=== PATIENT | female | born 1985 | race Caucasian/White ===

== ENCOUNTER 2017-03-23 08:29 | Outpatient (CLI) | payer OTHER | END 2017-03-23 08:30 | disposition home or self-care (01) | LOC: DI 08:29 | DX: I34.0 Nonrheumatic mitral (valve) insufficiency (principal) | CPT/HCPCS: 93306 ==

== ENCOUNTER 2020-01-07 16:41 | Outpatient (CLI) | payer OTHER ==
--- NOTE | 2020-01-08 07:37 | Ultrasound Report ---
Reason: SUPER HIGH RISK Procedure Date: 01/07/2020 Accession Number: [id number] / [id number] Procedure: US - OB F/U or Repeat CPT Code: Final Report FULL RESULT: EXAM: FOLLOW-UP OBSTETRICAL ULTRASOUND EXAM DATE: 01/07/2020 06:20 PM. CLINICAL HISTORY: Super high risk . COMPARISON: Prior ultrasound studies performed at the [facility] are not available for comparison. TECHNIQUE: Real-time sonographic evaluation of the fetus performed by the assembly line machine operator. Additional transvaginal imaging to more accurately evaluate cervical length/placental position/etc. Multiple care support representative static images were saved for review. DATING: Established EGA 37 weeks 4 days with GREER 01/24/2020 based on the most recent reported ultrasound performed at outside institution. EGA 35 weeks 1 day with GREER 02/10/2020 based on reported clinical history as seen on previous ultrasound report. EGA 36 weeks 5 days with GREER 01/30/2020 based on the current ultrasound. GENERAL EVALUATION Monique . Cardiac activity: 116 bpm. movement: Visualized. Presentation: Cephalic. Placenta: Posterior position. Amniotic fluid: Normal. YAQUELIN 16.5 cm. MVP 4.9 cm. BIOMETRY Bi-Parietal Diameter (BPD): 9.1 cm, 37 weeks 0 days Head Circumference (HC): 33.5 cm, 38 weeks 2 days Abdominal Circumference (AC): 31.9 cm, 35 weeks 6 days Femur Length (FL): 6.9 cm, 35 weeks 3 days Estimated Weight: 2854 grams MATERNAL STRUCTURES Cervix is long and closed, 4.5 cm transabdominally. IMPRESSION: 1. Monique live intrauterine with gestational age 36 weeks 5 days based on the current ultrasound. 2. Acceptable interval growth compared to report dated 11/23/2019. RADIA
== END 2020-01-07 16:42 | disposition home or self-care (01) ==
LOC: DI 16:41
PROVIDERS: ATTEND Obstetrics & Gynecology
DX: O09.93 Supervision of high risk pregnancy, unspecified, third trimester (principal); Z3A.36 36 weeks gestation of pregnancy
CPT/HCPCS: 76816

== ENCOUNTER 2020-01-10 07:00 | Outpatient (CLI) | payer OTHER ==
[2020-01-10 22:41] LABS: TRICHOMONAS VAGINALIS DNA NEGATIVE (NEGATIVE)
== END 2020-01-10 23:59 | disposition home or self-care (01) ==
LOC: LAB.R 07:00
PROVIDERS: ATTEND Obstetrics & Gynecology
DX: Z36.89 Encounter for other specified antenatal screening (principal)
CPT/HCPCS: 87491; 87591; 87661; 87797

== ENCOUNTER 2020-01-14 19:47 | Outpatient (CLI) | payer OTHER ==
--- NOTE | 2020-01-14 22:38 | Ultrasound Report ---
Reason: SUPERVISION OF HIGH RISK Procedure Date: 01/14/2020 Accession Number: [id number] / [id number] Procedure: US - OB Limited CPT Code: Final Report FULL RESULT: EXAM: LIMITED OBSTETRICAL ULTRASOUND EXAM DATE: 01/14/2020 09:05 PM. CLINICAL HISTORY: SUPERVISION OF HIGH RISK , chronic hypertension, YAQUELIN check. COMPARISON: 01/07/2020. TECHNIQUE: Real-time sonographic evaluation of the fetus performed by the career agent. Multiple used equipment sales representative static images were saved for review. DATING: Established EGA 36 weeks 4 days with GREER 02/07/2020. GENERAL EVALUATION Monique . Cardiac activity: 126 bpm. movement: Visualized. Presentation: Cephalic. Placenta: Posterior position. Amniotic fluid: Normal. YAQUELIN 15.3 cm. MVP 5.9 cm. IMPRESSION: 1. Monique live intrauterine with gestational age 36 weeks 4 days based on established GREER. 2. YAQUELIN of 15.3. RADIA
== END 2020-01-14 19:48 | disposition home or self-care (01) ==
LOC: DI 19:47
PROVIDERS: ATTEND Advanced Practice Midwife
DX: O09.93 Supervision of high risk pregnancy, unspecified, third trimester (principal); Z3A.36 36 weeks gestation of pregnancy
CPT/HCPCS: 76815

== ENCOUNTER 2020-01-14 21:08 | Outpatient (CLI) | payer OTHER ==
[2020-01-14] MEDS ORDERED: LABETALOL 100 MG TABLET PO ONE (22:03)
--- NOTE | 2020-01-14 22:25 | HISTORY & PHYSICAL EXAMINATION ---
Admit History - Visit Reason Visit Reason: Other (35yo G1 at 36 4/7 wks by LMP c/w first trimester scan presents for scheduled YAQUELIN and NST secondary to AMA and mild gesational HTN. She denies bleeding, fluid leak, contractions and reports normal activity. Denies n/v/f/c and dysuria, headache and visual changes. Pt is on Labetalol 200BID and reports home BPs 130's/70-80's. Has not taken her evening dose.) - : 1 Care: positive: [facility] Risk/History: positive: Genital herpes Complications This : positive: Chronic HTN (Stable on baby as pirin and labetalol), Other (AMA) Smoking Status: Never smoker - Mother's Labs Mother's Blood Type: positive: O Mother's RH: positive: Positive Rubella Status: positive: Immune (HIV/RPR/HepB NR GC/chlam neg +HSV ASCUS PAP Varicella immune) Meds/Allgy - Home Medications Home Medications: Ambulatory Orders Medication Instructions Recorded Confirmed Cephalexin [Keflex] 500 mg PO TID #20 capsule 01/22/16 Fexofenadine HCl [Shilpi Allergy] 1 tab PO DAILY 01/22/16 01/22/16 Hydrocodone/Acetaminophen [[place] 1 each PO Q6H PRN #15 tablet 01/22/16 5-325 Tablet] Triamcinolone Acetonide [Nasacort] 2 puffs NS DAILY 01/22/16 01/22/16 Valacyclovir HCl [Valacyclovir] 1 tab PO DAILY 01/22/16 01/22/16 dexAMETHasone [Decadron] 4 mg PO DAILY #5 tablet 01/22/16 l-Norgest/E.estradiol-E.estrad 1 tab PO DAILY 01/22/16 01/22/16 [Loseasonique Tablet] - Allergies Allergies/Adverse Reactions: Allergies Allergy/AdvReac Type Severity Reaction Status Date / Time Sulfa (Sulfonamide Allergy Rash Verified 01/22/16 20:02 Antibiotics) Review of Systems - All Other Systems All Other Systems: reports: Reviewed and negative Physical - Abdominal Exam Vital Signs: Temp Pulse Resp BP Pulse Ox 98.4 F 77 18 142/82 H 100 01/14/20 21:28 01/14/20 21:28 01/14/20 21:28 01/14/20 21:46 01/14/20 21:28 Contraction Frequency (min/apart): None Uterine Resting Tone: positive: Soft - Monitoring Strip Review: positive: Category I - Presentation Presentation: positive: Vertex - Vaginal Exam Membranes: positive: Membranes intact (YAQUELIN done in radiology) - Speculum Exam Speculum Exam Performed: positive: No (Vertex by scan. YAQUELIN=11.3, greatest vertical pocket 3.43cm Active baby 06/07 on BPP) Assessment/Plan - Assessment/Plan Assessment: 35yo G1 at 36 4/7 weeks with normal testing. BP's slightly higher than her baseline. Given labetalol here. Will recheck her BP at home and call if it doesn't drop back down. Completely asymptomatic. F/U here for further BP management if indicated or as scheduled in a few days w primary OB provider.
[2020-01-14 22:37] VITALS: BP 145/93
== END 2020-01-14 22:40 | disposition home or self-care (01) ==
LOC: WFO 21:08 → FBP 21:12 → WFO 22:40
PROVIDERS: ATTEND Obstetrics & Gynecology
DX: O13.3 Gestational [pregnancy-induced] hypertension without significant proteinuria, third trimester (principal); O09.513 Supervision of elderly primigravida, third trimester; Z79.899 Other long term (current) drug therapy; O98.313 Other infections with a predominantly sexual mode of transmission complicating pregnancy, third trimester; A60.00 Herpesviral infection of urogenital system, unspecified; Z79.82 Long term (current) use of aspirin; Z3A.36 36 weeks gestation of pregnancy; O09.93 Supervision of high risk pregnancy, unspecified, third trimester
CPT/HCPCS: 59025; 76815; A9270

== ENCOUNTER 2020-01-21 16:51 | Inpatient (IN) | payer OTHER ==
[2020-01-21] MEDS ORDERED: LACTATED RINGERS 1,000 ML IV ONE ×2 (18:24→18:40)
[2020-01-21] MEDS ORDERED: miSOPROStoL 200 MCG TABLET PR SCH (19:54)
[2020-01-21] MEDS ORDERED: OXYTOCIN/SODIUM CHLORIDE 500 ML IV PRN (19:54)
[2020-01-21] MEDS ORDERED: miSOPROStoL 200 MCG TABLET PR PRN (19:54)
[2020-01-21] MEDS ORDERED: LABETALOL 100 MG TABLET PO ONE (20:44)
[2020-01-21] MEDS ORDERED: miSOPROStoL 100 MCG TABLET ONE (20:45)
[2020-01-21] MEDS: LABETALOL 100 MG TABLET PO SCH (21:00)
[2020-01-21 21:59] LABS: ALBUMIN 3.3 g/dL (3.2-5.5); ALBUMIN/GLOBULIN RATIO 0.9 (1.0-2.2); BILIRUBIN,TOTAL 0.4 mg/dL (0.2-1.0); CALCIUM 9.3 mg/dL (8.5-10.3); CREATININE 0.8 mg/dL (0.4-1.0); URIC ACID 7.6 mg/dL (2.6-7.2)
[2020-01-21 22:03] LABS: BASOPHILS # (AUTO) 0.1 10^3/uL (0.0-0.1); BASOPHILS % (AUTO) 0.4 %; EOSINOPHILS # (AUTO) 0.1 10^3/uL (0.0-0.7); EOSINOPHILS % (AUTO) 0.7 %; HGB - HEMOGLOBIN 13.1 g/dL (12.0-16.0); LYMPHOCYTES % (AUTO) 17.6 %; MEAN CORPUSCULAR HEMOGLOBIN 31.2 pg (27.0-31.0); MEAN CORPUSCULAR HGB CONC 33.6 g/dL (32.0-36.0); MEAN CORPUSCULAR VOLUME 92.9 fL (81.0-99.0); MEAN PLATELET VOLUME 10.4 fL (7.9-10.8); MONOCYTES # (AUTO) 0.4 10^3/uL (0.0-1.0); MONOCYTES % (AUTO) 3.6 %; NEUTROPHILS # (AUTO) 8.9 10^3/uL (1.5-6.6); NEUTROPHILS % (AUTO) 77.2 %; PLT - PLATELET COUNT 265 10^3/uL (130-450); RED CELL DISTRIBUTION WIDTH 13.8 % (12.0-15.0); WHITE BLOOD COUNT 11.6 x10^3/uL (4.8-10.8)
--- NOTE | 2020-01-21 22:08 | Ultrasound Report ---
Reason: Periods of bradycardia Procedure Date: 01/21/2020 Accession Number: [id number] / [id number] Procedure: US - OB Biophysical Profile CPT Code: Final Report FULL RESULT: EXAM: BIOPHYSICAL PROFILE EXAM DATE: 01/21/2020 07:31 PM. CLINICAL HISTORY: Periods of bradycardia. COMPARISON: None. TECHNIQUE: Real-time sonographic evaluation of the fetus performed by the project controls specialist. Multiple education courses sales representative static images were saved for review. DATING: Established EGA 37 weeks 4 days with GREER 02/07/2020. GENERAL EVALUATION Monique . Cardiac activity: 123 bpm. movement: Visualized. Presentation: Cephalic. Placenta: Posterior position. No evidence for previa or abruption. Amniotic fluid: Normal. YAQUELIN 14.4 cm. MVP 5.3 cm. BIOPHYSICAL PROFILE Breathing = 2 Movement = 2 Tone = 2 Amniotic Fluid = 2 Total 06/07 IMPRESSION: 1. Monique live intrauterine with gestational age 37 weeks 4 days based on established GREER. 2. Biophysical profile score 8 of 8. CAPO
[2020-01-21 22:22] LABS: CREATININE,URINE 17.1 mg/dL
[2020-01-21 22:28] LABS: TOTAL PROTEIN,URINE TIMED < 6 mg/dL
[2020-01-21] MEDS: valACYclovir 500 MG TABLET PO SCH (22:51)
[2020-01-21] MEDS: DOCUSATE SODIUM 250 MG CAPSULE PO SCH (22:51)
[2020-01-21] MEDS ORDERED: miSOPROStoL 100 MCG TABLET BC SCH (23:00)
--- NOTE | 2020-01-22 01:21 | HISTORY & PHYSICAL EXAMINATION ---
Admit History - Visit Reason Visit Reason: Other - : 2 Parity: 1 Care: positive: [facility] Risk/History: positive: Genital herpes, Other (chronic hypertension) Complications This : positive: Chronic HTN, Other Smoking Status: Former smoker - Mother's Labs Mother's Blood Type: positive: O Mother's RH: positive: Positive GBS: positive: Group B Step Negative Rubella Status: positive: Immune - Other Maternal History Other Maternal History: Patient is a 34-year-old G2, P0 at 37 weeks 4 days by LMP and 10-week ultrasound here for transfer of OB care. has been complicated by chronic hypertension on labetalol. Also taking ASA 81 mg p.o. daily. Has seen MFM in early . Hx of mild MVP; does not require cardiology surveillance. Had been seen in triage for testing. NST showed recurrent decels vs changes in baseline to the 100s in the setting of moderate variability and accels Continued on extended monitoring Patient had been given a fluid bolus and had a BPPP of 8/8 Blood pressures then peaked to a SBP of 165 followed with several in the high 150s No headache, vision change, RUQ pain Given the periods of bradycardia and the sudden increase in blood pressures after recent increase to TID dosing of labetalol, decision was made to proceed with IOL. 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 DATING by LMP and confirmed by 10w5d us on 07/17/19 O pos/Rub imm Genetic testing : Watkins wnl, neg CF carrier Glucola 110 FAS wnl; posterior, 91% EFW 3VC HSV: positive on valacyclovir Last pap 2016 TDaP 11/23/19 Influenza: confirm Meds/Allgy - Home Medications Home Medications: Ambulatory Orders Medication Instructions Recorded Confirmed Cephalexin [Keflex] 500 mg PO TID #20 capsule 01/22/16 Fexofenadine HCl [Shilpi Allergy] 1 tab PO DAILY 01/22/16 01/22/16 Hydrocodone/Acetaminophen [[place] 1 each PO Q6H PRN #15 tablet 01/22/16 5-325 Tablet] Triamcinolone Acetonide [Nasacort] 2 puffs NS DAILY 01/22/16 01/22/16 Valacyclovir HCl [Valacyclovir] 1 tab PO DAILY 01/22/16 01/22/16 dexAMETHasone [Decadron] 4 mg PO DAILY #5 tablet 01/22/16 l-Norgest/E.estradiol-E.estrad 1 tab PO DAILY 01/22/16 01/22/16 [Loseasonique Tablet] - Allergies Allergies/Adverse Reactions: Allergies Allergy/AdvReac Type Severity Reaction Status Date / Time Sulfa (Sulfonamide Allergy Rash Verified 01/22/16 20:02 Antibiotics) Review of Systems - Other Findings Other Findings: As per HPI otherwise remaining systems are negative. Physical - Abdominal Exam Vital Signs: Temp Pulse Resp BP Pulse Ox 98.4 F 73 16 144/87 H 99 01/21/20 17:27 01/21/20 19:48 01/21/20 19:48 01/21/20 19:48 01/21/20 18:26 Contraction Frequency (min/apart): quiet - Monitoring Heart Rate Baseline: 120 with periods in the 100s Strip Review: positive: Category II - Presentation Presentation: positive: Vertex - Vaginal Exam Membranes: positive: Membranes intact Dilation (in cm): cl - Other Notes Labor Progress Note/Additional Text: SVE deferred given lack of ctx and primigravida state Plan for Labor - Plan For Labor Plan for Labor: IOL: Proceed with cervical ripening -Start with 25 mcg misoprostol BC If tolerance is appropriate; ok to increase to 50 mcg with next dose -Reviewed possibility of Wood balloon -Pitocin when favorable Will remaininobservation status until active, ruptured, or pitocin is started HTN: Cont labetalol 200 mg po TID -IV labetalol vs hydralazine for severe ranage pressures -Magnesium in setting of persistent severe features -PIH labs pending HSV: no symptoms. Has been on valacyclovir since prior to 34 wga FWB: Vertex, GBS neg, well grwoth, Cat I with intermittent Cat II tracing -CEFM PAIN: Nitrous contraindicated in setting of COVID-19 ppx -Fentanyl 50 mcg IV until 7 cm and total cumulative dose not to exceed 200 mcg -Epidural per pat request Anticipate
[2020-01-22] MEDS: miSOPROStoL 100 MCG TABLET BC SCH ×4 (01:34→20:05)
[2020-01-22] MEDS: LABETALOL 100 MG TABLET PO SCH ×3 (05:00→21:02)
[2020-01-22] MEDS: SODIUM CHLORIDE FLUSH 0.9% 10 ML SYRINGE IVP PRN ×2 (08:00→12:00)
[2020-01-22] MEDS: valACYclovir 500 MG TABLET PO SCH ×2 (08:14→21:03)
--- NOTE | 2020-01-22 09:15 | Ultrasound Report ---
Reason: SUPERVISION OF HIGH RISK Procedure Date: 01/21/2020 Accession Number: [id number] / [id number] Procedure: US - OB Limited CPT Code: Final Report FULL RESULT: EXAM: LIMITED OBSTETRICAL ULTRASOUND EXAM DATE: 01/21/2020 04:57 PM. CLINICAL HISTORY: SUPERVISION OF HIGH RISK . Chronic hypertension COMPARISON: OB LIMITED 01/14/2020 8:33 PM. TECHNIQUE: Real-time sonographic evaluation of the fetus performed by the hot saw operator. Multiple plastic products sales representative static images were saved for review. DATING: Established EGA 37 weeks 4 days with GREER 02/07/2020. GENERAL EVALUATION Monique . Cardiac activity: 126 bpm. movement: Present. Presentation: Cephalic. Placenta: Posterior position. Amniotic fluid: Normal. YAQUELIN 14.2 cm. MVP 3.7 cm. ANATOMY Not assessed today. MATERNAL STRUCTURES Not assessed today. IMPRESSION: 1. Monique intrauterine with gestational age 37 weeks 4 days based on established GREER. 2. YAQUELIN 14.2 cm. MVP 3.7 cm. RADIA
--- NOTE | 2020-01-22 12:54 | PROVIDER PROGRESS NOTE ---
Labor Progress Note - Uterine Monitoring Uterine Monitoring Mode: positive: External toco Contraction Frequency (min/apart): 7 Contraction Intensity: positive: Mild Uterine Resting Tone: positive: Soft - Monitoring Monitor Mode: positive: External ultrasound Heart Rate Baseline: 125 Heart Rate Variability: positive: Moderate (6-25 bmp) Accelerations: positive: Present, 15x15 Decelerations: positive: None Strip Review: positive: Category I - Vaginal Exam Dilation (in cm): closed Effacement (%): 20 % Station: -3 Cervical Position: Posterior - Labor Progress Note Labor Progress Note/Additional Text: Strip reassuring. Minimal cx canges. continue with mesoprostil.
[2020-01-22] MEDS: DOCUSATE SODIUM 250 MG CAPSULE PO SCH (21:02)
[2020-01-23] MEDS: miSOPROStoL 100 MCG TABLET BC SCH ×2 (02:00→21:59)
--- NOTE | 2020-01-23 08:56 | PROVIDER PROGRESS NOTE ---
Labor Progress Note - Uterine Monitoring Uterine Monitoring Mode: positive: External toco Contraction Intensity: positive: Mild to moderate Uterine Resting Tone: positive: Soft - Monitoring Accelerations: positive: Present, 15x15 Decelerations: positive: None Strip Review: positive: Category I (Late entry 01/22/2020, 1730. Pt has had 4 doses of mesoprostal. Rx for 6 doses. Pt is not making muchj progress. VS normalized. Allow to sleep tonight. consider Cool cathiter in the AM.)
[2020-01-23] MEDS: LABETALOL 100 MG TABLET PO SCH ×3 (10:41→23:00)
--- NOTE | 2020-01-23 10:45 | PROVIDER PROGRESS NOTE ---
Labor Progress Note - Uterine Monitoring Uterine Monitoring Mode: positive: External toco Contraction Frequency (min/apart): 6 Contraction Intensity: positive: Mild Uterine Resting Tone: positive: Soft - Monitoring Heart Rate Baseline: 135 Heart Rate Variability: positive: Moderate (6-25 bmp) Accelerations: positive: Present, 15x15 Decelerations: positive: None Strip Review: positive: Category I - Vaginal Exam Dilation (in cm): 1 Effacement (%): 20 Station: -3 Cervical Position: Posterior (Soft) - Labor Progress Note Labor Progress Note/Additional Text: 60 Ml in Cook cath
--- NOTE | 2020-01-23 16:28 | PROVIDER PROGRESS NOTE ---
Labor Progress Note - Uterine Monitoring Contraction Frequency (min/apart): 6-7 Contraction Intensity: positive: Mild to moderate Uterine Resting Tone: positive: Soft - Monitoring Monitor Mode: positive: External ultrasound Heart Rate Baseline: 125 Heart Rate Variability: positive: Moderate (6-25 bmp) Accelerations: positive: Present, 15x15 Decelerations: positive: None Strip Review: positive: Category I - Vaginal Exam Dilation (in cm): 5 Effacement (%): 50% Station: -3 Cervical Position: Posterior - Labor Progress Note Labor Progress Note/Additional Text: Cx is betts 5. head is high adn vertex. start pitocin. Epidural PRN
[2020-01-23] MEDS ORDERED: OXYTOCIN/SODIUM CHLORIDE 500 ML IV SCH (17:00)
[2020-01-23] MEDS: LACTATED RINGERS 1,000 ML IV SCH (17:31)
--- NOTE | 2020-01-23 21:42 | PROVIDER PROGRESS NOTE ---
Labor Progress Note - Uterine Monitoring Contraction Frequency (min/apart): 4-6 Contraction Intensity: positive: Mild to moderate Uterine Resting Tone: positive: Soft - Monitoring Heart Rate Baseline: 125 Heart Rate Variability: positive: Moderate (6-25 bmp) Accelerations: positive: Present, 15x15 Decelerations: positive: None Strip Review: positive: Category I - Vaginal Exam Dilation (in cm): 5 Effacement (%): 30% Station: -3 Cervical Position: Posterior - Labor Progress Note Labor Progress Note/Additional Text: Pt has not made much progress. Stop Pit Misoprostal restart in the AM
[2020-01-23] MEDS: valACYclovir 500 MG TABLET PO SCH (21:56)
[2020-01-23] MEDS: DOCUSATE SODIUM 250 MG CAPSULE PO SCH (21:59)
[2020-01-24] MEDS: miSOPROStoL 100 MCG TABLET BC SCH (02:05)
[2020-01-24] MEDS: LABETALOL 100 MG TABLET PO SCH ×3 (06:01→21:29)
--- NOTE | 2020-01-24 07:43 | PROVIDER PROGRESS NOTE ---
Labor Progress Note - Uterine Monitoring Uterine Monitoring Mode: positive: External toco Contraction Frequency (min/apart): miniml Contraction Intensity: positive: Mild Uterine Resting Tone: positive: Soft - Monitoring Monitor Mode: positive: External ultrasound Heart Rate Baseline: 130 Heart Rate Variability: positive: Moderate (6-25 bmp) Accelerations: positive: Present, 15x15 Decelerations: positive: None Strip Review: positive: Category I - Vaginal Exam Dilation (in cm): 4.5 Effacement (%): 20% Station: -3 Cervical Position: Midposition (Misoprostal overnight Start pit after breakfast)
[2020-01-24] MEDS: valACYclovir 500 MG TABLET PO SCH ×2 (07:54→21:29)
[2020-01-24] MEDS: LORATADINE 10 MG TABLET PO SCH (07:54)
[2020-01-24] MEDS: DOCUSATE SODIUM 250 MG CAPSULE PO SCH ×2 (07:55→21:29)
[2020-01-24] MEDS ORDERED: OXYTOCIN/SODIUM CHLORIDE 500 ML IV SCH (08:00)
[2020-01-24] MEDS: LACTATED RINGERS 1,000 ML IV SCH ×2 (10:52→16:27)
--- NOTE | 2020-01-24 13:05 | PROVIDER PROGRESS NOTE ---
Labor Progress Note - Vaginal Exam Dilation (in cm): 4.5 Effacement (%): 20 Station: -3 Cervical Position: Posterior - Labor Progress Note Labor Progress Note/Additional Text: Pit increased form 6 to 8. head losing station. Batsheva yeager pt feels that she made more progress with misoprostal
--- NOTE | 2020-01-24 15:58 | PROVIDER PROGRESS NOTE ---
Labor Progress Note - Uterine Monitoring Contraction Frequency (min/apart): 2-4 Contraction Intensity: positive: Moderate to strong Uterine Resting Tone: positive: Soft - Monitoring Monitor Mode: positive: External ultrasound Heart Rate Baseline: 135 Heart Rate Variability: positive: Moderate (6-25 bmp) Accelerations: positive: Present, 15x15 Decelerations: positive: None Strip Review: positive: Category I - Vaginal Exam Dilation (in cm): 6 Effacement (%): 75% Station: -1 Cervical Position: Midposition - Labor Progress Note Labor Progress Note/Additional Text: SROM clear titrate pit Epidural PRN
[2020-01-24] MEDS ORDERED: LIDOCAINE-MPF 1% 30 ML VIAL ONE (16:25)
[2020-01-24] MEDS ORDERED: ROPIVACAINE 0.2% 200 MG/100 ML BAG EP ONE ×2 (16:25→23:02)
--- NOTE | 2020-01-24 17:04 | ANESTHESIA ---
Pre-Anesthesia VS, & Labs - Diagnosis active labor/ IUP - Procedure JOE Vital Signs: Temp Pulse Resp BP Pulse Ox 36.9 C 73 16 144/87 H 99 01/21/20 17:27 01/21/20 19:48 01/21/20 19:48 01/21/20 19:48 01/21/20 18:26 Height 5 ft 9 in Weight (kg) 66.075 kg - Is Patient ?: Yes - Lab Results Current Lab Results: Laboratory Tests 01/21/20 19:55: Sodium 136, Potassium 3.9, Chloride 105, Carbon Dioxide 19 L, Anion Gap 12.0, BUN 14, Creatinine 0.8, Estimated GFR (MDRD) 81 L, Glucose 121 H , Uric Acid 7.6 H, Calcium 9.3, Total Bilirubin 0.4, AST 24, ALT 19, Alkaline Phosphatase 147 H, Total Protein 7.0, Albumin 3.3, Globulin 3.7, Albumin/Globu obey Ratio 0.9 L 01/21/20 18:55: WBC 11.6 H, RBC 4.20, Hgb 13.1, Hct 39.0, MCV 92.9, MCH 31.2 H, MCHC 33.6, RDW 13.8, Plt Count 265, MPV 10.4, Neut # (Auto) 8.9 H, Lymph # (Auto) 2.0, [place] # (Auto) 0.4, Eos # (Auto) 0.1, Baso # (Auto) 0.1, Absolute Nucleated RBC 0.00, Nucleated RBC % 0.0 Fish Bones: 01/21/20 18:55 01/21/20 19:55 Home Medications and Allergies Active Medications Docusate Sodium (Colace 250mg Capsule) 250 mg PO BID [facility] Last Admin: 01/24/20 07:55 Dose: 250 mg Fluticasone Propionate (Flonase) 1 sprays PAYAL DAILY [facility] Lactated Ringer's (Lr) 1,000 mls @ 100 mls/hr IV .Q10H [facility] Last Admin: 01/24/20 16:27 Dose: 100 mls/hr Oxytocin/Sodium Chloride (Pitocin/Sodium Chloride) 500 mls @ 999 mls/hr IV PRN PRN; Protocol PRN Reason: POST- HEMORR PREVENTION Oxytocin/Sodium Chloride (Pitocin/Sodium Chloride) 500 mls @ 1 mls/hr IV TITR [facility]; Protocol Last Admin: 01/24/20 08:58 Dose: 2 milliunit/min, 2 mls/hr Labetalol HCl (Trandate) 200 mg PO TID [facility] Last Admin: 01/24/20 13:50 Dose: 200 mg Loratadine (Claritin) 10 mg PO DAILY [facility] Last Admin: 01/24/20 07:54 Dose: 10 mg Misoprostol (Cytotec) 50 mcg BC Q4H [facility] Last Admin: 01/24/20 02:05 Dose: 50 mcg Sodium Chloride (Normal Saline Flush 0.9%) 10 ml IVP PRN PRN PRN Reason: NEEDED PER PROVIDER ORDERS Last Admin: 01/22/20 12:00 Dose: 10 ml Valacyclovir HCl (Valtrex) 500 mg PO BID [facility] Last Admin: 01/24/20 07:54 Dose: 500 mg Fexofenadine HCl [Shilpi Allergy] 1 tab PO DAILY 01/22/16 Triamcinolone Acetonide [Nasacort] 2 puffs NS DAILY 01/22/16 Valacyclovir HCl [Valacyclovir] 1 tab PO DAILY 01/22/16 l-Norgest/E.estradiol-E.estrad [Loseasonique Tablet] 1 tab PO DAILY 01/22/16 Allergies/Adverse Reactions: Allergies Allergy/AdvReac Type Severity Reaction Status Date / Time Sulfa (Sulfonamide Allergy Rash Verified 01/22/16 20:02 Antibiotics) Anes History & Medical History - Anesthetic History Anesthesia Complications: reports: No previous complications Family history of Anesthesia Complications: Denies Family history of Malignant Hyperthermia: Denies - Medical History Cardiovascular: reports: None Pulmonary: reports: None Gastrointestinal: reports: None Urinary: reports: None Neuro: reports: None Musculoskeletal: reports: None Endocrine/Autoimmune: reports: None Blood Disorders: reports: None Skin: reports: None Smoking Status: Former smoker Psychosocial: reports: No issues indicated - Obstetrical History : 2 Parity: 1 Events: positive: Genital herpes, Other (chronic hypertension) Complications: positive: Chronic HTN, Other Exam General: Alert, Oriented x3, Cooperative, No acute distress Dental: WNL Mouth Openin Fingerbreadth Neck Mobility: Normal Mallampati classification: II Thyromental Distance: less than 4 cm Respiratory: Lungs clear, Normal breath sounds, No respiratory distress, No accessory muscle use Cardiovascular: Regular rate, Normal S1, Normal S2, No murmurs Abdomen: Normal bowel sounds, Soft, No tenderness, No hepatospenomegaly, No masses Extremities: No clubbing, No cyanosis, No edema, Normal pulses, No tenderness/swelling Neurological: Normal gait, Normal speech, Strength at 5/5 X4 ext, Normal tone, Sensation intact, Cranial nerves 3-12 NL, Reflexes 2+ Plan Anesthesia Type: Epidural Consent for Procedure(s) Verified and Reviewed: Yes Code Status: Attempt Resuscitation ASA classification: 2-Mild systemic disease Is this case an emergency?: No
[2020-01-24] MEDS ORDERED: DEXTROSE 5%-LACTATED RINGERS 1,000 ML IV SCH (18:00)
--- NOTE | 2020-01-25 01:29 | CONSULTATION NOTE ---
Consultation Report: RN reporting that patient was c/o some pain. Went in to see the patient, she has a sensory level of T10/T9. I encouraged her to push her PCEA button as needed for breakthrough pain. I aslo changed her intermittent bolus to 12ml q 45minutes. She appears comfortable and without distress.
[2020-01-25] MEDS ORDERED: miSOPROStoL 200 MCG TABLET ONE (02:19)
[2020-01-25] MEDS ORDERED: LIDOCAINE-MPF 1% 30 ML VIAL ONE (02:45)
--- NOTE | 2020-01-25 03:12 | DELIVERY NOTE ---
Delivery Note - Labor Labor: positive: Spontaneous, Induced by oxytocin. negative: Augmented by oxytocin - Delivery Method Delivery Method: positive: Spontaneous vaginal delivery - Cervical Ripening Method Cervical Ripening Method: positive: Balloon device, Misoprostil - Presentation Presentation: positive: Vertex, SANDRA - right occiput anterior - Nuchal Cord Nuchal Cord: positive: Present - Anesthetic Anesthetic Type: Anesthetic: positive: Lidocaine - 1% plain Volume: positive: Other (20) - Amniotic Fluid Description Amniotic Fluid Description: positive: Clear - Episiotomy Type Episiotomy Type: positive: None - Laceration Laceration: positive: 1st degree, 2nd degree, Labial, Perineal - Suture Suture Type: positive: Vicryl Suture Size: positive: 3-0 - Delivery Outcome Delivery Outcome: positive: Livebirth - : positive: Placed in direct skin contact with mother, Bulb syringe, Stimulated, [place] used [place] sex: positive: Male : APGARS 8/9 : weight 7 lb 3.5 oz - Cord Cord: positive: 3 vessels - Placenta Placenta: positive: Intact, Spontaneous - Estimated Blood Loss Estimated Blood Loss (in cc): 200 - Post Delivery Events Post Delivery Events: positive: No post delivery events - Delivery Comments (Free Text/Narrative) Delivery Comments (Free Text/Narrative): She was on labetalol. Patient is induced for worsening hypertension during her . She was brought in and received 6 doses of buccal misoprostol 50 mcg following this she had a Cook placed for cervical ripening this brought her up to 5 cm however the head remained high and the cervix remained long. She had Pitocin started on Tuesday and run throughout the day but made little progress. That evening she again received misoprostol and this morning her Pitocin was reinitiated. With time the head started to descend. She had an epidural placed for labral analgesia. She spontaneously ruptured at 1530 and came to complete at 0145 on the morning of the .She pushed excellent and following a 32-minute second stage delivered a healthy live male infant right occiput anterior. At time of delivery and nuchal cord was noted which was loose and the was delivered through the cord. The was placed on the maternal abdomen and cord was not clamped until pulsations had ceased.The had Apgars of 8 and 9 and was noted to be male. Placenta followed at 0228 was inspected noted to be intact. At time of delivery she suffered a second-degree perineal laceration and 2 first-degree labial lacerations. The perineal lacera tion was closed with 3-0 Vicryl and the right labial laceration was closed with 3-0 Vicryl subcuticular. At delivery the estimated blood loss was 200 cc. Both mother and infant tolerated delivery well. Sponge and needle counts were correct.
[2020-01-25] MEDS ORDERED: diphenhydrAMINE 25 MG CAPSULE PO PRN (03:20)
[2020-01-25] MEDS ORDERED: HYDROCORTISONE 1% CREAM 28 GM TUBE PR PRN (03:20)
[2020-01-25] MEDS ORDERED: oxyCODONE 5 MG TABLET PO PRN (03:20)
[2020-01-25] MEDS ORDERED: ONDANSETRON 4 MG/2 ML VIAL IVP PRN (03:20)
[2020-01-25] MEDS ORDERED: WITCH HAZEL/GLYCERIN 1 PAD TOP PRN (03:20)
[2020-01-25] MEDS: ACETAMINOPHEN 500 MG TABLET PO SCH ×3 (03:57→20:43)
[2020-01-25] MEDS ORDERED: LACTATED RINGERS 1,000 ML IV SCH (04:00)
[2020-01-25] MEDS: LABETALOL 100 MG TABLET PO SCH ×3 (06:03→20:44)
[2020-01-25 06:11] LABS: BASOPHILS % (AUTO) 0.3 %; EOSINOPHILS % (AUTO) 0.2 %; LYMPHOCYTES # (AUTO) 1.4 10^3/uL (1.5-3.5); MEAN CORPUSCULAR HEMOGLOBIN 30.4 pg (27.0-31.0); MEAN CORPUSCULAR HGB CONC 33.1 g/dL (32.0-36.0); MEAN CORPUSCULAR VOLUME 91.6 fL (81.0-99.0); MEAN PLATELET VOLUME 9.9 fL (7.9-10.8); MONOCYTES # (AUTO) 0.7 10^3/uL (0.0-1.0); MONOCYTES % (AUTO) 4.4 %; NEUTROPHILS # (AUTO) 13.4 10^3/uL (1.5-6.6); NEUTROPHILS % (AUTO) 85.4 %; PLT - PLATELET COUNT 200 10^3/uL (130-450); RED BLOOD COUNT 3.95 10^6/uL (4.20-5.40); RED CELL DISTRIBUTION WIDTH 13.8 % (12.0-15.0); WHITE BLOOD COUNT 15.7 x10^3/uL (4.8-10.8)
[2020-01-25 06:23] LABS: URIC ACID 8.3 mg/dL (2.6-7.2)
[2020-01-25] MEDS ORDERED: DOCUSATE SODIUM 100 MG CAPSULE PO SCH (09:00)
[2020-01-25] MEDS: DOCUSATE SODIUM 250 MG CAPSULE PO SCH ×2 (09:43→20:43)
[2020-01-25] MEDS: LORATADINE 10 MG TABLET PO SCH (09:43)
[2020-01-25] MEDS: valACYclovir 500 MG TABLET PO SCH ×2 (09:44→20:43)
[2020-01-25] MEDS: FLUTICASONE NASAL SPRAY NAS SCH (12:57)
[2020-01-26] MEDS: valACYclovir 500 MG TABLET PO SCH ×2 (08:06→20:08)
[2020-01-26] MEDS: ACETAMINOPHEN 500 MG TABLET PO SCH ×2 (08:06→16:09)
[2020-01-26] MEDS: LORATADINE 10 MG TABLET PO SCH (08:07)
[2020-01-26] MEDS: DOCUSATE SODIUM 250 MG CAPSULE PO SCH ×2 (08:07→20:08)
[2020-01-26] MEDS: LABETALOL 100 MG TABLET PO SCH ×2 (08:07→16:08)
[2020-01-26] MEDS: FLUTICASONE NASAL SPRAY NAS SCH ×2 (08:15→18:39)
[2020-01-26] MEDS: SIMETHICONE CHEW 80 MG TABLET PO SCH ×3 (08:49→18:38)
--- NOTE | 2020-01-26 10:53 | PROVIDER PROGRESS NOTE ---
Subjective - Prog Note Date Prog Note Date: 01/26/20 Prog Note Time: 10:51 - Subjective Subjective: Patient is up and ambulating, tolerating po, and voiding. Pain is well managed with pain medications. Breast-feeding is going well. Blood pressures remain within normal limits. Patient denies headache, vision change, right upper quadrant pain. She is without complaints. Baby will remain inpatient to monitor bilirubin levels per pediatric provider as relayed by patient. Objective - Vital Signs/Intake & Output Vital Signs: Vital Signs x48h Temp Pulse Resp BP Pulse Ox 01/26/20 08:11 98.2 F 79 21 132/81 H 98 Intake & Output: Intake & Output 01/23/20 01/24/20 01/25/20 01/26/20 23:59 23:59 23:59 23:59 Intake Total 3.65 2058.333 3000 Output Total 400 1900 Balance 3.65 1632.585 7594 - Objective General Appearance: positive: No acute distress Respiratory: positive: No respiratory distress Cardiovascular: positive: Other (RR) Peripheral Pulses: 1+ Dorsalis pedis (R), 1+ Dorsalis pedis (L) Abdomen: positive: Non-tender, Other (FF below umbi) Skin: positive: Color nml, Warm Extremities: positive: Non-tender, No pedal edema Neurologic/Psychiatric: positive: Oriented x3 - Lab Results Fish Bones: 01/25/20 05:58 01/21/20 19:55 Assessment/Plan - Problem List (1) Vaginal delivery Impression: PPD#1: Patient is doing well Will remain in patient for infant observation Anticipate DC home in am.
[2020-01-27] MEDS: ACETAMINOPHEN 500 MG TABLET PO SCH ×2 (08:01)
[2020-01-27] MEDS: valACYclovir 500 MG TABLET PO SCH (08:02)
[2020-01-27] MEDS: LABETALOL 100 MG TABLET PO SCH ×2 (08:02)
[2020-01-27] MEDS: DOCUSATE SODIUM 250 MG CAPSULE PO SCH (08:02)
[2020-01-27] MEDS: FLUTICASONE NASAL SPRAY NAS SCH (08:03)
[2020-01-27] MEDS: LORATADINE 10 MG TABLET PO SCH (08:03)
--- NOTE | 2020-01-27 12:58 | PROVIDER PROGRESS NOTE ---
Subjective - Prog Note Date Prog Note Date: 01/27/20 Prog Note Time: 11:37 - Subjective Pt reports feeling: Improved Subjective: Patient is up and ambulating, tolerating po, and voiding. Pain is well managed with pain medications. Taking tylenol only for pain. On labetaolol 200 TID. BPs have remained in high normal to low mild range. No complaints. Objective - Vital Signs/Intake & Output Vital Signs: Vital Signs x48h Temp Pulse Resp BP Pulse Ox 01/27/20 08:30 97.9 F 77 18 139/78 H 98 01/27/20 03:53 98.4 F 64 16 123/69 99 Intake & Output: Intake & Output 01/24/20 01/25/20 01/26/20 01/27/20 23:59 23:59 23:59 23:59 Intake Total 2058.333 3000 Output Total 400 1900 Balance 9810.102 3785 - Objective General Appearance: positive: No acute distress Respiratory: positive: No respiratory distress Cardiovascular: positive: Other (RR) - Lab Results Fish Bones: 01/25/20 05:58 01/21/20 19:55 Assessment/Plan - Problem List (1) Vaginal delivery Impression: Meeting goals for discharge DC to home with BP check within one week
[2020-01-27 13:04] VITALS: BP 130/76
--- NOTE | 2020-01-27 13:06 | Labor Flowsheet ---
Labor Flowsheet Datetime Report Generated by CPN: 01/27/2020 13:06 Datetime: 01/27/2020 12:21 VITAL SIGNS NBP Sys/Noni/Mean (mmHg): 130 : 76 : 89 Pulse: 72 Datetime: 01/27/2020 00:50 SpO2 (%): 99 Datetime: 01/25/2020 04:01 PAIN Pain Scale: 2 Pain Presence: Intermittent Pain Type: Cramping Pain Location: Abdomen Datetime: 01/25/2020 02:50 Respirations: 18 Temperature (C): 37.2 Temperature Route: Axillary Datetime: 01/25/2020 02:30 Stage of : Anesthesia Level Check: T10- Umbilicus Datetime: 01/25/2020 02:28 Comments: spont placenta Datetime: 01/25/2020 02:24 LaborFlag: Labor Datetime: 01/25/2020 02:15 UTERINE ACTIVITY Monitor Mode: External ASSESSMENT A Monitor Mode: External US Monitor Interventions for FHR: Ultrasound Adjusted FHR Baseline Rate : 90 Variability: Moderate 6-25 bpm Decelerations: Variable Datetime: 01/25/2020 02:10 Frequency (min): 3-4 Datetime: 01/25/2020 02:05 STAGE 2 Pushing: Coached on Pushing (Annotations: pushing initiated) Pushing Position: Pushing Lithotomy Pushing Progress: Descent with Pushing Datetime: 01/25/2020 02:00 Accelerations: 15X15 Datetime: 01/25/2020 01:57 I/O Interventions: Betts Discontinued Patient Care Comments: betts emptied of 300ml urine Datetime: 01/25/2020 01:45 Quality: Strong FHR Baseline Changes: No Baseline Change Category: Category II VAGINAL EXAM Dilatation (cm): 10.0 Station: 1 Exam by: A. Varne, RNC COMMUNICATION Communication: Call/Page Placed to Provider Provider Notified (Name): Dr. Salcedo Notification Reason: Status Update (Annotations: called to come to room for delivery) Datetime: 01/25/2020 01:31 Monitor Interventions for UA: [place] Adjusted Pattern: Normal: <= 5 Contractions in 10 Minutes Resting Tone (Palpate): Relaxed Datetime: 01/25/2020 01:21 Duration (sec): 60-80 Pain Assessment Comments: feet feeling more numb again and pain better Datetime: 01/25/2020 01:15 Pain Coping: Breathing Through Contractions ANESTHESIA Anesthesia Plans: Epidural Anesthesia Comments: TRANSPORTATION ASSISTANT in and bolus given and PCEA button given to pt Datetime: 01/25/2020 01:06 Provider Reviewed Strip: Yes Datetime: 01/25/2020 00:45 Contraction Comments: not picking up with pt on R side Datetime: 01/25/2020 00:26 Effacement (%): 90 Amniotic Fluid Amount: None Vaginal Bleeding: Scant Cervix, Consistency: Soft Cervix, Position: Anterior Headache: Denies Nausea/Vomiting: Denies RUQ Epigastric Pain: Denies Patient Position/Activity: Right Lateral Comfort Measures: Breathing/Relaxation Datetime: 01/24/2020 23:16 Amniotic Fluid Color: Clear Datetime: 01/24/2020 22:40 MEDICATIONS Pitocin (milliunits): Increased to @ 13 Datetime: 01/24/2020 22:39 Vaginal Exam Comments: feels slight rectal pressure with contractions Datetime: 01/24/2020 21:30 Medication Comments: Labetelol 200mg PO and Valtrex 500mg PO given as scheduled Datetime: 01/24/2020 19:55 Communication Comments: reported on VE, progress Datetime: 01/24/2020 19:19 MATERNAL ASSESSMENT Level of Consciousness: Alert Strip Reviewed by: A. Hilda, RNC Datetime: 01/24/2020 19:01 PATIENT CARE Oxygen Method: Room Air Datetime: 01/24/2020 16:49 Epidural Procedure Other: Pump Started Datetime: 01/24/2020 16:42 Epidural Procedure: Loading Dose Datetime: 01/24/2020 16:29 PROCEDURE TIME OUT Procedure Verify: Correct Patient Identity; Agreement on Procedure to be Done; Correct Patient Posi tion; Addressed Need to Administer Antibiotics or Fluids for Irrigation; Safety Precautions Based on Patient History or Medication Use Epidural Positioning: Sitting Datetime: 01/24/2020 15:30 Membrane Status: Ruptured Membranes Rupture Method: Spontaneous Datetime: 01/24/2020 07:30 Pitocin Checklist: At Least 1 Acceleration of 15 bpm x 15 Seconds in 30 Minutes or Adequate Variabi lity; No More than 1 Late Deceleration Occurred in Past 30 Minutes; No More than 2 Variable Decelerat ions > 60 Seconds in Duration and decreasing >60 bpm in 30 minutes; No More than 5 Uterine Contractio ns in 10 Minutes for any 20 Minute Interval; Uterus Palpates Soft between Contractions Datetime: 01/24/2020 02:07 Cervical Ripening Agents: Betts Balloon; Cytotec @ Datetime: 01/23/2020 20:19 Breath Sounds, Left: Clear and Equal Breath Sounds, Right: Clear and Equal Datetime: 01/23/2020 10:39 Procedures: Sterile Vag Exam Datetime: 01/23/2020 08:01 Plan of Care: Plan of Care Discussed Datetime: 01/22/2020 14:46 Hygiene: Shower Datetime: 01/22/2020 08:01 TEACHING Instructional Method: Verbal Unit Routine: Unit Personnel; Handwashing; Flu/Illness Precautions; Monitoring; Diet/Nutritio n Services; Medications Labor/Induction: Induction Pain Management: Pain Scale/Goals Related: Common Discomforts of ; Nutrition; Activity and Rest Datetime: 01/22/2020 02:02 Pain Goal: 5 Pain Relief Measures: Comfort Measures Datetime: 01/22/2020 01:35 Medications: Cervical Ripening Datetime: 01/22/2020 01:01 DTR's/Clonus: DTRs 2+; No Clonus
--- NOTE | 2020-01-27 13:49 | Discharge Plan ---
Discharge Plan Problem Reviewed?: Yes Disposition: 01 Home, Self Care Condition: Good Diet: Regular Activity Restrictions: Additional Comments (Nothing in the vagina for 6 weeks: No intercourse, tampons, douching Call for: -Fever greater than 100.5 - Pain that does not improve with pain medication -Heavy bleeding in which you are soaking a pad an hour for 2 hours in a row) Shower Restrictions: No (No baths or hot tubs for 4 weeks) Weight Bearing: Full Weight Additional Instructions or Follow Up instructions: Continue labetalol 200 mg by mouth 3 times daily. Continue to check blood pressures at home. Call clinic for blood pressures of 160 or greater systolic or 110 or greater diastolic. Call clinic for headaches, vision changes, right upper quadrant pain. No Smoking: If you smoke, Please STOP! Call for help. Follow-up with: MACARENA BABCOCK MD, PHD [Physician No Access] -
--- NOTE | 2020-01-27 13:52 | DISCHARGE SUMMARY ---
"Discharge Summary Admit Date: 01/21/20 Discharge Date: 01/27/20 Discharging Provider: Juanita Code Status: Attempt Resuscitation Condition at Discharge: Good Discharge Disposition: 01 Home, Self Care Discharge Facility Name: [facility] - DIAGNOSES Admission Diagnoses: IUP at 37w4d Chronic hypertension Severe range blood pressures, new obset, c/f BRADLY Discharge Diagnoses with Status of Each Condition: Same and delivery of term gestation - HPI History of Present Illness: Patient is a 34-year-old G2, P0 admitted at 37 weeks 4 days by LMP and 10-week ultrasound for BRADLY/CHTN. has been complicated by chronic hypertension on labetalol. Also taking ASA 81 mg p.o. daily. Has seen MFM in early . Hx of mild MVP; does not require cardiology surveillance. Had been seen in triage for testing. NST showed recurrent decels vs changes in baseline to the 100s in the setting of moderate variability and accels Continued on extended monitoring Patient had been given a fluid bolus and had a BPPP of 8/8 Blood pressures then peaked to a SBP of 165 followed with several in the high 150s No headache, vision change, RUQ pain Given the periods of bradycardia and the sudden increase in blood pressures after recent increase to TID dosing of labetalol, decision was made to proceed with IOL. 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 DATING by LMP and confirmed by 10w5d us on 07/17/19 O pos/Rub imm Genetic testing : [place] wnl, neg CF carrier Glucola 110 FAS wnl; posterior, 91% EFW 3VC HSV: positive on valacyclovir Last pap 2016 TDaP 11/23/19 Influenza: confirm - CONSULTS | PROCEDURES Procedures: vaginal delivery - HOSPITAL COURSE Hospital Course: Patient admitted with initial SVE of closed/long/high. Received 6 doses of buccal misoprostol 50 mcg for cervical ripening. She then had a Cook betts catheter placed for cervical ripening. After Betts bulb fell out, her cervical exam was 5/long.high. Started Pitocin on 01/23/2020, and run throughout the day but made little progress. That evening she again received misoprostol and on 01/24/20 am, Pitocin was reinitiated. With time the head started to descend. She had an epidural placed for analgesia. She spontaneously ruptured at 1530 and came to complete at 0145 on the morning of the .She pushed well for 32-minutes and delivered a healthy live male infant right occiput anterior. At time of delivery, nuchal cord was noted which was loose and the was delivered through the cord. The was placed on the maternal abdomen and cord was not clamped until pulsations had ceased.The had Apgars of 8 and 9. Placenta followed at 0228 was inspected noted to be intact. At time of delivery she suffered a second-degree perineal laceration and 2 first-degree labial lacerations. The perineal laceration was closed with 3-0 Vicryl and the right labial laceration was closed with 3-0 Vicryl subcuticular. At delivery the estimated blood loss was 200 cc. Both mother and tolerated delivery well. Sponge and needle counts were correct. Blood pressures remained in high normal, low mild range in the course. Baby was observed for bilirubin assessment. By PPD #2, both mother and baby were meeting goals for discharge and were discharged to home. Rh positive and Rubella immune. - ALLERGIES Allergies/Adverse Reactions: Allergies Allergy/AdvReac Type Severity Reaction Status Date / Time Sulfa (Sulfonamide Allergy Rash Verified 01/22/16 20:02 Antibiotics) - MEDICATIONS Home Medications: Ambulatory Orders Medication Instructions Recorded Confirmed Cephalexin [Keflex] 500 mg PO TID #20 capsule 01/22/16 Fexofenadine HCl [Shilpi Allergy] 1 tab PO DAILY 01/22/16 01/22/16 Hydrocodone/Acetaminophen [[place] 1 each PO Q6H PRN #15 tablet 01/22/16 5-325 Tablet] Triamcinolone Acetonide [Nasacort] 2 puffs NS DAILY 01/22/16 01/22/16 Valacyclovir HCl [Valacyclovir] 1 tab PO DAILY 01/22/16 01/22/16 dexAMETHasone [Decadron] 4 mg PO DAILY #5 tablet 01/22/16 l-Norgest/E.estradiol-E.estrad 1 tab PO DAILY 01/22/16 01/22/16 [Loseasonique Tablet] Home Medications Other | Comments: Tylenol 1000 mg po Q8H prn pain Labetalol 200 mg po TID - LABS Result Diagrams: 01/25/20 05:58 01/21/20 19:55 - FOLLOW UP Follow Up: Patient will track blood pressure at home and call within one week to report for follow-up in efforts to avoid COVID-19 exposure. Knows to call for SBP> =160 or DBP>=110 FU in 6 weeks for routine pp care - TIME SPENT Time Spent in Discharge (Minutes): 30"
== END 2020-01-27 13:05 | disposition home or self-care (01) | DRG 806 ==
LOC: DI 16:51 → FBP 17:16 → DI 19:53 → FBP 19:54 → OBSVTOIN 01-23 17:08
PROVIDERS: ADMIT Obstetrics & Gynecology; ATTEND Obstetrics & Gynecology
PROC: 0U7C7ZZ Dilation of Cervix, Via Natural or Artificial Opening (ICD-10-PCS; 2020-01-23)
PROC: 3E033VJ Introduction of Other Hormone into Peripheral Vein, Percutaneous Approach (ICD-10-PCS; 2020-01-23)
PROC: 10E0XZZ Delivery of Products of Conception, External Approach (ICD-10-PCS; principal; 2020-01-25)
PROC: 0KQM0ZZ Repair Perineum Muscle, Open Approach (ICD-10-PCS; 2020-01-25)
DX: O10.92 Unspecified pre-existing hypertension complicating childbirth (principal); O98.32 Other infections with a predominantly sexual mode of transmission complicating childbirth; Z37.0 Single live birth; A60.00 Herpesviral infection of urogenital system, unspecified; O70.1 Second degree perineal laceration during delivery; O70.0 First degree perineal laceration during delivery; O69.81X0 Labor and delivery complicated by cord around neck, without compression, not applicable or unspecified; O10.93 Unspecified pre-existing hypertension complicating the puerperium; Z3A.37 37 weeks gestation of pregnancy; Z79.82 Long term (current) use of aspirin; Z79.899 Other long term (current) drug therapy; Z86.79 Personal history of other diseases of the circulatory system; Z87.891 Personal history of nicotine dependence
CPT/HCPCS: 36415; 59025; 76815; 76819; 80053; 82570; 84156; 84450; 84550; 85025; 99213; A9270; G0378; J7120; 99214

== ENCOUNTER 2022-10-20 07:56 | Outpatient (CLI) | payer OTHER | END 2022-10-20 07:57 | disposition home or self-care (01) | LOC: DI 07:56 | PROVIDERS: ATTEND Student in an Organized Health Care Education/Training Program | DX: R00.2 Palpitations (principal); I10 Essential (primary) hypertension; I34.1 Nonrheumatic mitral (valve) prolapse | CPT/HCPCS: 93306 ==

== ENCOUNTER 2022-12-21 09:22 | Outpatient (CLI) | payer OTHER ==
[2022-12-21 10:05] VITALS: BP 142/80
--- NOTE | 2022-12-21 10:05 | SLEEP CARE CONSULTATION ---
Information from patient questionnaire entered by Bulmaro Mortensen. I have reviewed and concur with the information entered by Bulmaro Mortensen. This document represents the service I personally performed and the decisions made by me, Valerie Dos Santos ARNP. History of Present Illness Service Date and Time: 12/21/2022921 Reason for Visit: New patient Chief Complaint: reports: Insomnia, Unrefreshed sleep, Snoring, Fatigue, Frequent awakenings at night Date of Onset: 2002 Usual bedtime: 930-10PM Time it takes to fall asleep: 30+MIN Snores at night: Yes Observed to quit breathing while asleep: No Sleeps alone due to snoring: No Number of times waking at night: 3-4 Reasons for waking at night: reports: Snoring, Pain, Bathroom, Other (NOISE). denies: Choking, Gasping for air Toss, Turn, or Twitch while sleeping: Yes Recalls having dreams: No Usually gets out of bed at: 6-630AM Feels refreshed in the morning: No Morning headache: Yes (3-4 times a week; usually resolves with coffee) Sleepy or fatigued during the day: Yes Ever fallen asleep while driving: No Takes day naps: No Dreams during day naps: No Prior sleep studies: No Additional HPI information: I had the pleasure of seeing EVA ESCALANTE today regarding the possibility of her having a sleep disorder. Her current complaints are fatigue, frequent night awakenings, snoring and unrefreshed sleep. She has been having less energy during the day and was sent here by her PCP. She states she wakes up at least 4 times a night for no apparent reasons. Other times she has been waking up with pain in her abdomen or because her child comes into her bed. 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 Patient is and lives in [place]. Have you smoked in the past 12 months: No Years of smokin Quit date: 2014 Alcohol use: Yes Alcohol amount and frequency: 1-2 4-5X MONTH Caffeine use: Yes Caffeine amount and frequency: 2CUPS DAILY Family History Family history of sleep disordered breathing: Yes Family Hx Sleep Apnea: Mother: Snoring, Father: Snoring, Sleep apnea - Treated, Sibling: Snoring Allergies and Home Medications Known drug allergies: Yes (SULFA) Drug allergies reviewed: Yes Home medication list reviewed: Yes Allergy and home medication list: Medications: Mobic Diltiazem Valtrex Claritin Flonase vitamins Tizanadine Review of Systems Cardiovascular: reports: high blood pressure, palpitations, chest pain Gastrointestinal: reports: heartburn, abdominal pain Urinary: reports: frequency Neurological: reports: headaches, gait or balance problems Psychiatric: denies: anxiety, depression Ear/Nose/Throat: reports: nasal congestion, sinus problems, nose bleeds, dry mouth/throat, hoarseness, wisdom teeth removed. denies: tonsillectomy Endocrine: reports: sluggishness, too hot or cold, excessive thirst, increased urination Musculoskeletal: reports: joint pain, neck pain, back pain, muscle pain or cramping Immunologic: reports: sneezing, itching Physical Exam Vital signs obtained and entered by: BULMARO Patel MA Blood Pressure: 142/80 (LEFT ARM) Cuff size: regular Heart Rate: 78 O2 Saturation: 97 Height: 5 ft 9 in Weight: 235 lb 12.8 oz Body Mass Index: 34.8 BMI Classification: Obese Neck circumference: 14.75 Mouth and throat: narrow oropharynx Soft palate: normal Hard palate: normal Uvula: normal Uvula visualization: 25% Mallampati Class III Tongue: enlarged in size with teeth beltrán on lateral edges Tonsils: small Neck: normal w/o lymphadenopathy or thyromegaly Heart: regular rate and rhythm Lungs: clear bilaterally Impression and Plan 1. Suspected Obstructive Sleep Apnea-Hypopnea Syndrome, as suggested by a history of loud and irregular snoring, morning headache, frequent awakening during the night, unrefreshed sleep and cognitive impairment. Narrow oropharynx and obesity are common predisposing factors for obstructive sleep apnea-hypopnea syndrome. I recommend proceeding to polysomnography to confirm the diagnosis and to assess severity. If the patient has significant sleep disordered breathing, a manual CPAP titration study will also be performed to find the optimal treatment pressure. I informed the patient of what the sleep studies involve and after some discussion, obtained agreement to proceed. The pathophysiology of obstructive sleep apnea-hypopnea syndrome was discussed with the patient and health risks of cardiovascular and cerebrovascular disease if not treated. Risks of drowsy driving discussed in detail and patient advised to avoid long distance driving and to stick puller at the first sign of drowsiness. Patient agreed to plan. * Schedule polysomnography * Avoid long distance driving or driving when feeling sleepy. * Avoid alcohol, sedative and muscle relaxant around bedtime. * Attempt to lose weight. * Review instructions provided by trained office staff on how to prepare for the sleep study. * Return for follow-up after sleep study completed. Counseling Topics: Weight loss health impact Visit Type: In Office Time Spent with Patient (minutes): 31 Provider Statement: I spent 100% of the Face to Face Visit with the patient with greater than 50% spent counseling the patient and coordination of care.
== END 2022-12-21 09:23 | disposition home or self-care (01) ==
LOC: SC 09:22
PROVIDERS: ATTEND Nurse Practitioner Family
DX: R06.83 Snoring (principal); G47.8 Other sleep disorders; R51.9 Headache, unspecified; R53.83 Other fatigue; I10 Essential (primary) hypertension; E66.9 Obesity, unspecified; Z68.34 Body mass index [BMI] 34.0-34.9, adult; Z87.891 Personal history of nicotine dependence
CPT/HCPCS: 99203; 99212

== ENCOUNTER 2023-01-09 19:24 | Outpatient (CLI) | payer OTHER | END 2023-01-09 19:25 | disposition home or self-care (01) | LOC: SC 19:24 | PROVIDERS: ATTEND Nurse Practitioner Family | DX: R06.83 Snoring (principal); G47.8 Other sleep disorders; R51.9 Headache, unspecified; R53.83 Other fatigue; I10 Essential (primary) hypertension; E66.9 Obesity, unspecified; Z68.34 Body mass index [BMI] 34.0-34.9, adult | CPT/HCPCS: 95810 ==

== ENCOUNTER 2023-01-13 12:43 | Outpatient (CLI) | payer OTHER ==
--- NOTE | 2023-01-13 13:22 | SLEEP CARE CONSULTATION ---
Information from patient questionnaire entered by Vita Mortensen. I have reviewed and concur with the information entered by Vita Mortensen. This document represents the service I personally performed and the decisions made by , Valerie Dos Santos ARNP. History of Present Illness Service Date and Time: 01/13/2023 1243 Initial [place] Sleepiness Scale score: 3 (12/14/22) Current [place] Sleepiness Scale score: 5 (01/13/23) Additional HPI information: EVA ESCALANTE returns for follow up and results of the recently performed polysomnography. The patient was informed of the following findings: No significant sleep disordered breathing with an average AHI of 3.4 and jayme oxygen saturation of 84%. Supine AHI 12.7. I explained the pathophysiology behind obstructive sleep apnea. Patient does not have sleep apnea and was advised how weight gain could increase the risk of developing sleep apnea in the future. I strongly encouraged the patient to lose weight. Patient does not have significant sleep disordered breathing but has elevated AHI in supine position so advised positional therapy. Methods to achieve positional management therapy were discussed; such as, positioning with pillows, wearing a T-shirt with tennis balls sewn into the back or commercially available products. Patient has moderate snoring. Snoring can be reduced by weight loss. Weight loss is best achieved with diet consult. Patient instructed to contact PCP for referral. Snoring can also be treated with an oral appliance from a dentist. Advised to check insurance coverage. In addition, an ENT evaluation can be do to see if other treatment is indicated. Patient counseled not drink alcohol less than 4 hours before bedtime as it can increase snoring and apnea. Patient was cautioned about risks of drowsy driving until sleepiness symptoms resolve. Nivia ent denies drowsy driving. Sleep Study - Results Type of Sleep Study: Polysomnography (COMPLETED 01/09/23) Prior sleep studies: No Polysomnography/Home Sleep Study results: IMPRESSION: The quality of the study is good. The patient had reduced sleep efficiency due to sleep onset insomnia and a prolonged awakening in the second half of the night. The sleep architecture was abnormal for sleep fragmentation and reduced amount of time spent in slow wave sleep (N3). Respiratory monitoring showed no significant sleep disordered breathing (AHI = 3.4) or hypoxia (jayme oxygen saturation of 84% but only 0.8% to the total sleep time was spent with oxygen saturation below 90%). The respiratory events occurred almost exclusively during supine REM sleep (supine AHI = 12.7; non-supine = 0.73). Snore was light to moderate in intensity. There was no significant periodic leg movement of sleep. Cardiac rhythm was normal sinus rhythm without significant arrhythmia. No abnormal behavior (parasomnia) observed during the night. Allergies and Home Medications Known drug allergies: Yes (sulfa) Drug allergies reviewed: Yes Home medication list reviewed: Yes (no changes) Allergy and home medication list: Allergies Sulfa (Sulfonamide Antibiotics) Allergy (Verified 01/12/23 14:49) Rash Review of Systems Review of systems same as previous: No (vaginal prolapse & prob uterine prolapse w/ poss. bladder drop) Physical Exam Vital signs obtained and entered by: VITA Patel MA Blood Pressure: 138/94 (LEFT ARM) Cuff size: regular Heart Rate: 63 O2 Saturation: 98 Height: 5 ft 9 in Weight: 236 lb 6.4 oz Body Mass Index: 34.9 BMI Classification: Obese Impression and Plan Snoring but no significant sleep disordered breathing. Patient has an elevated supine AHI and should avoid sleeping on her back. Positional management therapy could be effective to control these respiratory events. Methods discussed such as positioning with pillows, using a T-shirt with tennis balls in the back or commercial products that have a pillow format on back to prevent supine sleep. I reviewed the impact of weight changes on sleep apnea and strongly recommended losing weight. Patient advised that often weight loss will reduce snoring as well as apnea risk. An oral appliance can also be used for snoring. This would require a dental consultation. Patient cautioned not to use other online appliances as can cause bite issues. A list of accredited dentists in [facility] and one local dentist who makes oral appliances given. Patient is advised to check if insurance will cover. An ENT consult can also be helpful to determine if any other treatment is an option. * Attempt to lose weight * Avoid alcohol consumption near bedtime * The patient is cautioned about driving until sleepiness is completely resolved. * Return as needed for follow up. Counseling Topics: Sleeping position, Weight loss health impact Visit Type: In Office Time Spent with Patient (minutes): 20 Provider Statement: I spent 100% of the Face to Face Visit with the patient with greater than 50% spent counseling the patient and coordination of care.
[2023-01-13 13:33] VITALS: BP 138/94
== END 2023-01-13 12:44 | disposition home or self-care (01) ==
LOC: SC 12:43
PROVIDERS: ATTEND Nurse Practitioner Family
DX: R06.83 Snoring (principal); E66.9 Obesity, unspecified; Z68.34 Body mass index [BMI] 34.0-34.9, adult
CPT/HCPCS: 99212; 99213

== ENCOUNTER 2023-09-07 08:00 | Outpatient (CLI) | payer OTHER | END 2023-09-07 23:59 | disposition home or self-care (01) | LOC: LAB.N 08:00 | PROVIDERS: ATTEND Physician Assistant Medical | DX: J02.9 Acute pharyngitis, unspecified (principal) | CPT/HCPCS: 87070 ==

== ENCOUNTER 2023-10-03 10:30 | Outpatient (CLI) | payer OTHER ==
--- NOTE | 2023-10-03 12:02 | XRAY Report ---
PROCEDURE: Finger(s) RT INDICATIONS: RIGHT MIDDLE FINGER DISTAL TIP CRUSH INJURY TECHNIQUE: AP hand, 2 views of the third finger(s) acquired. COMPARISON: None. FINDINGS: Bones: No fractures or dislocations. No suspicious bony lesions. Soft tissues: No suspicious soft tissue calcifications or masses. IMPRESSION: No acute bony abnormality. Reviewed by: Des Atkins MD on 10/03/2023 12:00 PM [facility] Approved by: Des Atkins MD on 10/03/2023 12:00 PM [facility] Station ID: [id number]
== END 2023-10-03 10:45 | disposition home or self-care (01) ==
LOC: DI.N 10:30
PROVIDERS: ATTEND Physician Assistant Medical
DX: L60.8 Other nail disorders (principal)

== ENCOUNTER 2023-10-28 08:52 | Outpatient (CLI) | payer OTHER ==
[2023-10-28 11:55] LABS: BASOPHILS # (AUTO) 0.1 10^3/uL (0.0-0.1); BASOPHILS % (AUTO) 0.6 %; EOSINOPHILS # (AUTO) 0.1 10^3/uL (0.0-0.7); EOSINOPHILS % (AUTO) 1.4 %; HCT - HEMATOCRIT 43.8 % (37.0-47.0); LYMPHOCYTES % (AUTO) 24.6 %; MEAN CORPUSCULAR HGB CONC 34.2 g/dL (32.0-36.0); MEAN CORPUSCULAR VOLUME 93.4 fL (81.0-99.0); MEAN PLATELET VOLUME 9.5 fL (7.9-10.8); MONOCYTES # (AUTO) 0.5 10^3/uL (0.0-1.0); MONOCYTES % (AUTO) 6.5 %; NEUTROPHILS # (AUTO) 5.4 10^3/uL (1.5-6.6); NEUTROPHILS % (AUTO) 66.5 %; PLT - PLATELET COUNT 287 10^3/uL (130-450); RED BLOOD COUNT 4.69 10^6/uL (4.20-5.40); WHITE BLOOD COUNT 8.1 x10^3/uL (4.8-10.8)
[2023-10-28 12:17] LABS: ALBUMIN 4.6 g/dL (3.2-5.5); ALBUMIN/GLOBULIN RATIO 1.4 (1.0-2.2); ALKALINE PHOSPHATASE 72 IU/L (42-121); ALT ALANINE AMINOTRANSFERASE 30 IU/L (10-60); AST ASPARTATE AMINOTRANSFERASE 22 IU/L (10-42); BILIRUBIN,TOTAL 0.8 mg/dL (0.2-1.0); BUN - BLOOD UREA NITROGEN 12 mg/dL (6-20); CALCIUM 9.6 mg/dL (8.5-10.3); CARBON DIOXIDE - CO2 27 mmol/L (21-32); CHLORIDE 101 mmol/L (101-111); CHOL/HDL RATIO 4.3 (<4.4); CHOLESTEROL 251 mg/dL; CREATININE 0.7 mg/dL (0.6-1.3); GFR - MDRD 93 (>89); GLUCOSE 92 mg/dL (74-104); HDL CHOLESTEROL 59 mg/dL; LDL CHOLESTEROL,CALCULATED 162 mg/dL; LDL/HDL RATIO 2.7 (<4.4); POTASSIUM 4.1 mmol/L (3.5-4.5); SODIUM 134 mmol/L (135-145); TOTAL PROTEIN 7.9 g/dL (6.4-8.9); TRIGLYCERIDES 149 mg/dL (48-352); VLDL CHOLESTEROL 30 mg/dL
[2023-10-28 12:19] LABS: ESTIMATED AVERAGE GLUCOSE 91 mg/dL (70-100); HEMOGLOBIN A1c% 4.8 % (4.27-6.07)
[2023-10-28 12:21] LABS: THYROID STIMULATING HORMONE 1.33 uIU/mL (0.34-5.60)
== END 2023-10-28 08:53 | disposition home or self-care (01) ==
LOC: LAB.N 08:52
PROVIDERS: ATTEND Nurse Practitioner Family
DX: Z00.00 Encounter for general adult medical examination without abnormal findings (principal); I10 Essential (primary) hypertension; E66.9 Obesity, unspecified
CPT/HCPCS: 36415; 80053; 80061; 83036; 83721; 84443; 85025

== ENCOUNTER 2023-12-13 11:23 | Outpatient (CLI) | payer OTHER ==
--- NOTE | 2023-12-13 12:29 | SLEEP CARE CONSULTATION ---
Information from patient questionnaire entered by Vita Mortensen. I have reviewed and concur with the information entered by Vita Mortensen. This document represents the service I personally performed and the decisions made by , Valerie Dos Santos ARNP. History of Present Illness Service Date and Time: 12/13/2023 1123 AHI: 3.4 (supine AHI 12.7) Reason for follow up: other (11 MONTH F/U FOR ORAL APPLIANCE) Prior sleep studies: No Type of Sleep Study: Polysomnography (COMPLETED 01/09/23) HPI additional information: EVA ESCALANTE returns today for 11 month follow-up. She comes in for pre scription for oral appliance. Sleep Study - Results Type of Sleep Study: Polysomnography (COMPLETED 01/09/23) Prior sleep studies: No Subjective Initial Sh[place] Sleepiness Scale score: 3 (12/14/22) Current Shonto Sleepiness Scale score: 9 Allergies and Home Medications Known drug allergies: Yes (sulfa) Drug allergies reviewed: Yes Home medication list reviewed: Yes (meds as listed) Allergy and home medication list: Allergies Sulfa (Sulfonamide Antibiotics) Allergy (Verified 12/12/23 09:08) Rash Medications: Losartan 50 mg Diltiazem Daily Vitamins Valtrex 500 mg Loratidine 10 mg Flonase Review of Systems Review of systems same as previous: No (total hysterectomy w/oopherectomy; sacrocolcopexy; bladder sling) Physical Exam Vital signs obtained and entered by: VALERIE PHILLIP Blood Pressure: 132/89 Cuff size: long (left) Heart Rate: 70 O2 Saturation: 98 Height: 5 ft 9 in Weight: 240 lb 3.2 oz Body Mass Index: 35.4 BMI Classification: Obese Impression and Plan 1. Snoring with elevated supine AHI at 12.7 as seen in last sleep study dated 01-09-2023. She has a history of hypertension and cardiac disease (mitral valve prolapse). She had surgery for hysterectomy and bladder sling and was told that she had a lot of apneas. She had already completed her sleep study 12/2022 which showed no significant sleep disordered breathing however she did have an elevated AHI when sleeping supine. Post-surgery she had to sleep on her back a lot and this caused her oxygen to drop when she would fall asleep. They encouraged her to follow-up to get an oral device for sleep apnea. I reviewed w ith her her sleep study results and says she just needs to avoid sleeping supine which she normally did prior to surgery. She did speak to her dentist about an oral appliance since I had talked to her about an oral appliance at our last visit. She could use an oral appliance for snoring. She said her dentist needs a prescription to get her an oral appliance which is what brought her here today. I told her she needs to check with her insurance as they may not cover an oral appliance for snoring. She does have positional mild obstructions when sleeping supine and I think it would be helpful to use an oral appliance. I will write the prescription and she will follow-up with her dentist. 2. Obesity, unspecified. Currently patients BMI is 35.4. Obesity increases the risk of apnea, CPAP pressure requirements and overall health risks especially cardiovascular and diabetes. Thus patient is advised to lose weight. * Oral appliance for snoring * Attempt to lose weight * Return for follow up as needed Counseling Topics: Sleeping position, Weight loss health impact Prescriptions: Other (Oral appliance for snoring) Follow up with Sleep Care in: as needed Visit Type: In Office Time Spent with Patient (minutes): 23 Provider Statement: I spent 100% of the Face to Face Visit with the patient with greater than 50% spent counseling the patient and coordination of care.
[2023-12-13 12:35] VITALS: BP 132/89; O2SAT 98
== END 2023-12-13 11:24 | disposition home or self-care (01) ==
LOC: SC 11:23
PROVIDERS: ATTEND Nurse Practitioner Family
DX: R06.83 Snoring (principal); I10 Essential (primary) hypertension; I34.1 Nonrheumatic mitral (valve) prolapse; E66.9 Obesity, unspecified; Z68.35 Body mass index [BMI] 35.0-35.9, adult
CPT/HCPCS: 99212

== ENCOUNTER 2024-01-14 22:51 | Outpatient (CLI) | payer OTHER | END 2024-01-14 23:59 | disposition critical access hospital (66) | LOC: EMS 22:51 | DX: R11.0 Nausea (principal); F10.90 Alcohol use, unspecified, uncomplicated | CPT/HCPCS: A0425; A0427 ==

== ENCOUNTER 2024-01-14 23:09 | Emergency (ER) | payer OTHER ==
--- NOTE | 2024-01-14 23:37 | ED Physician Documentation ---
History of Present Illness - Stated complaint Stated Complaint: ETOH - Chief complaint Chief Complaint: Abd Pain - History obtained from History obtained from: Patient, Family (), EMS - History of Present Illness Timing: Today - Additonal information Additional information: 39-year-old Vale Cardenas went to the [employer] dinner with her this evening celebrating her 39th birthday and drank heavily, ate more than usual and she began to have issue with vomiting and altered level of consciousness. The indicates that she usually drinks maybe a glass of wine with dinner and does not usually drink hard alcohol or drink excessively. He indicates that she drank way more than she normally does both wine and hard alcohol. Review of Systems Constitutional: reports: Sweats. denies: Fever, Chills Eyes: denies: Decreased vision Ears: denies: Ear pain Nose: reports: Congestion. denies: Rhinorrhea / runny nose Throat: denies: Sore throat Cardiac: denies: Chest pain / pressure, Palpitations Respiratory: reports: Cough (mild). denies: Dyspnea GI: reports: Nausea, Vomiting. denies: Abdominal Pain : denies: Dysuria, Frequency Skin: denies: Rash Musculoskeletal: denies: Neck pain, Back pain, Extremity pain Neurologic: reports: Near syncope. denies: Generalized weakness, Focal weakness, Numbness, Difficulty speaking PD PAST MEDICAL HISTORY - Past Medical History Cardiovascular: None Respiratory: None Neuro: None Endocrine/Autoimmune: None GI: None : None Musculoskeletal: None Derm: None - Past Surgical History Past Surgical History: Yes - Present Medications Home Medications: Ambulatory Orders Medication Instructions Recorded Confirmed Fluticasone [Flonase] See Rx Instructions .ROUTE .COMPLEX 12/21/22 01/13/23 Ibuprofen [Motrin] See Rx Instructions .ROUTE .COMPLEX 12/21/22 01/13/23 Loratadine [Claritin] See Rx Instructions .ROUTE .COMPLEX 12/21/22 01/13/23 Meloxicam [Mobic] See Rx Instructions .ROUTE .COMPLEX 12/21/22 01/13/23 Pnv No.95/Ferrous Fum/Folic AC See Rx Instructions .ROUTE .COMPLEX 12/21/22 01/13/23 [ Caplet] Tizanidine HCl [Zanaflex] See Rx Instructions .ROUTE .COMPLEX 12/21/22 01/13/23 Valacyclovir HCl [Valtrex] See Rx Instructions .ROUTE .COMPLEX 12/21/22 01/13/23 diltiaZEM CD [Cardizem Cd] See Rx Instructions .ROUTE .COMPLEX 12/21/22 01/13/23 - Allergies Allergies/Adverse Reactions: Allergies Allergy/AdvReac Type Severity Reaction Status Date / Time Sulfa (Sulfonamide Allergy Rash Verified 12/12/23 09:08 Antibiotics) - Social History Does the pt smoke?: No Smoking Status: Never smoker Does the pt drink ETOH?: Yes Does the pt have substance abuse?: No - Immunizations Immunizations are current?: Yes PD ED PE NORMAL - Vitals Vital signs reviewed: Yes (Hypertensive diastolic) - General General: Well developed/nourished, Other (39-year-old female laying supine in gurney eyes closed is interactive. Drifts off to sleep easily.) - HEENT HEENT: Atraumatic, PERRL, EOMI - Neck Neck: Supple, no meningeal sign, No bony TTP - Cardiac Cardiac: RRR, No murmur - Respiratory Respiratory: No respiratory distress, Clear bilaterally - Abdomen Abdomen: Normal bowel sounds, Soft, Non tender, Non distended, No organomegaly - Back Back: No CVA TTP, No spinal TTP - Derm Derm: Normal color, Warm and dry, No rash - Extremities Extremities: No deformity, No edema - Neuro Neuro: speed runner 2-12 intact, No motor deficit, No sensory deficit, Normal speech Eye Opening: To Voice Motor: Obeys Commands Verbal: Oriented GCS Score: 14 - Psych Psych: Normal mood, Normal affect Results - Vitals Vitals: Vital Signs - 24 hr 01/14/24 01/14/24 01/15/24 23:23 23:28 01:00 Temperature 36.7 C Heart Rate 66 66 77 Respiratory 18 18 16 Rate Blood Pressure 139/94 H 138/94 H 116/74 O2 Saturation 100 100 94 01/15/24 02:51 Temperature Heart Rate 90 Respiratory 16 Rate Blood Pressure 112/61 O2 Saturation 98 Oxygen O2 Source Room air - Labs Labs: Laboratory Tests 01/15/24 01/15/24 00:00 00:00 WBC 8.3 RBC 4.18 L Hgb 13.1 Hct 39.6 MCV 94.7 MCH 31.3 H MCHC 33.1 RDW 11.9 L Plt Count 226 MPV 9.4 Neut # (Auto) 6.4 Lymph # (Auto) 1.4 L [place] # (Auto) 0.4 Eos # (Auto) 0.0 Baso # (Auto) 0.0 Absolute Nucleated RBC 0.00 Nucleated RBC % 0.0 Sodium 138 Potassium 3.5 Chloride 106 Carbon Dioxide 22 Anion Gap 10.0 BUN 12 Creatinine 0.7 Estimated GFR (MDRD) 93 Glucose 105 H Calcium 8.9 Total Bilirubin 0.3 AST 17 ALT 20 Alkaline Phosphatase 76 Total Protein 7.1 Albumin 4.3 Globulin 2.8 Albumin/Globulin Ratio 1.5 Lipase 27 Ethyl Alcohol 153.0 PD Medical Decision Making - ED course Complexity details: considered differential, d/w patient, d/w family Reviewed Lab Results: We reviewed a complete blood count showing a normal white blood cell count of 8.3 normal hemoglobin hematocrit and platelets chemistries showed normal electrolytes normal kidney and liver function normal lipase toxicology showed an ethyl alcohol of 153.0. My interpretation of these otherwise normal laboratory values is this looks like alcohol intoxication. ED course: 39-year-old Vale Cardenas presents to the emergency department with alcohol intoxication and her level of intoxication by her alcohol level indicates a poor tolerance to alcohol. She is given a liter of saline and Zofran and is able to sober enough to safely go home with her who graciously takes her home. Departure - Departure Disposition: 01 , Self Care Clinical Impression: Alcohol intoxication Qualifiers: Complication of substance-induced condition: uncomplicated Qualified Code(s): F10.920 - Alcohol use, unspecified with intoxication, uncomplicated Condition: Stable Instructions: ED Alcohol Intoxication Follow-Up: Shannan Mann ARNP [Primary Care Provider] - Comments: Vale, today it looks like your blood alcohol level is 153. Our expectations are that the alcohol should be out of your system by about noon today and you are likely to have some withdrawal symptoms which will brief brief which will be brief. Recommendation is to increase your fluids. We will send you home with some nausea medicine if it is needed. Forms: PCP List Discharge Date/Time: 01/15/24 03:13
[2024-01-14] MEDS: SODIUM CHLORIDE 0.9% 1,000 ML IV STA (23:43)
[2024-01-14] MEDS: ONDANSETRON 4 MG/2 ML VIAL IVP STA (23:44)
[2024-01-15 00:06] LABS: BASOPHILS % (AUTO) 0.4 %; EOSINOPHILS % (AUTO) 0.4 %; HCT - HEMATOCRIT 39.6 % (37.0-47.0); HGB - HEMOGLOBIN 13.1 g/dL (12.0-16.0); LYMPHOCYTES # (AUTO) 1.4 10^3/uL (1.5-3.5); LYMPHOCYTES % (AUTO) 16.8 %; MEAN CORPUSCULAR HEMOGLOBIN 31.3 pg (27.0-31.0); MEAN CORPUSCULAR HGB CONC 33.1 g/dL (32.0-36.0); MEAN CORPUSCULAR VOLUME 94.7 fL (81.0-99.0); MEAN PLATELET VOLUME 9.4 fL (7.9-10.8); MONOCYTES # (AUTO) 0.4 10^3/uL (0.0-1.0); MONOCYTES % (AUTO) 4.5 %; NEUTROPHILS # (AUTO) 6.4 10^3/uL (1.5-6.6); NEUTROPHILS % (AUTO) 77.7 %; PLT - PLATELET COUNT 226 10^3/uL (130-450); RED BLOOD COUNT 4.18 10^6/uL (4.20-5.40); RED CELL DISTRIBUTION WIDTH 11.9 % (12.0-15.0); WHITE BLOOD COUNT 8.3 x10^3/uL (4.8-10.8)
[2024-01-15 00:21] LABS: ALBUMIN 4.3 g/dL (3.2-5.5); ALBUMIN/GLOBULIN RATIO 1.5 (1.0-2.2); BILIRUBIN,TOTAL 0.3 mg/dL (0.2-1.0); CALCIUM 8.9 mg/dL (8.5-10.3); CREATININE 0.7 mg/dL (0.6-1.3); POTASSIUM 3.5 mmol/L (3.5-4.5); TOTAL PROTEIN 7.1 g/dL (6.4-8.9)
[2024-01-15] MEDS ORDERED: ONDANSETRON ODT 4 MG Prepack 2 TL PRN (02:56)
[2024-01-15 02:58] VITALS: BP 112/61; O2SAT 98
== END 2024-01-15 03:13 | disposition home or self-care (01) ==
LOC: EDUNIT# → ED 23:09
DX: F10.920 Alcohol use, unspecified with intoxication, uncomplicated (principal); Y90.6 Blood alcohol level of 120-199 mg/100 ml; Z79.899 Other long term (current) drug therapy
CPT/HCPCS: 36415; 80053; 82077; 83690; 85025; 96374; 99283

== ENCOUNTER 2024-06-28 07:12 | Outpatient (CLI) | payer OTHER ==
[2024-06-28 12:19] LABS: BUN - BLOOD UREA NITROGEN 15 mg/dL (6-20); CALCIUM 9.2 mg/dL (8.5-10.3); CARBON DIOXIDE - CO2 29 mmol/L (21-32); CHLORIDE 102 mmol/L (101-111); CHOL/HDL RATIO 3.6 (<4.4); CHOLESTEROL 223 mg/dL; CREATININE 0.7 mg/dL (0.6-1.3); GFR - MDRD 93 (>89); GLUCOSE 84 mg/dL (74-104); HDL CHOLESTEROL 62 mg/dL; LDL CHOLESTEROL,CALCULATED 131 mg/dL; LDL/HDL RATIO 2.1 (<4.4); POTASSIUM 3.9 mmol/L (3.5-4.5); SODIUM 134 mmol/L (135-145); TRIGLYCERIDES 152 mg/dL; VLDL CHOLESTEROL 30 mg/dL
[2024-06-28 12:33] LABS: THYROID STIMULATING HORMONE 1.46 uIU/mL (0.34-5.60)
== END 2024-06-28 07:13 | disposition home or self-care (01) ==
LOC: LAB.N 07:12
PROVIDERS: ATTEND Nurse Practitioner Family
DX: I10 Essential (primary) hypertension (principal); E78.5 Hyperlipidemia, unspecified
CPT/HCPCS: 36415; 80048; 80061; 83721; 84443